=== PATIENT | female | born 1985 | race Caucasian/White ===

== ENCOUNTER 2022-07-22 12:02 | Emergency (ER) | payer OTHER ==
[2022-07-22 12:19] VITALS: BP 124/64; PULSE 86; RESP 18; TEMP 98; BMI 37.5
[2022-07-22] MEDS ORDERED: IBUPROFEN 600 MG TABLET (FP) PO ONE ×2 (12:43→12:47)
== END 2022-07-22 13:15 | disposition home or self-care (01) ==
LOC: JER 12:02 → JERFT 12:02
DX: U07.1 COVID-19 (principal); J02.9 Acute pharyngitis, unspecified
CPT/HCPCS: 0241U-QW; 87651; 99283-25